=== PATIENT | male | born 1990 | race Two or more races ===

== ENCOUNTER 2018-02-23 05:47 | Inpatient (IN) | payer OTHER ==
[~2018-02-23] VITALS: Ht 167.6 cm; Wt 76.2 kg
[2018-02-23 09:36] VITALS: BP 132/89
[2018-02-23] MEDS ORDERED: LABETALOL 5MG/ML, 20ML IVPush PRN (10:00)
[2018-02-23] MEDS ORDERED: ACETAMINOPHEN 325 MG TABLET PO PRN (10:00)
[2018-02-23] MEDS ORDERED: ONDANSETRON 2MG/ML, 2ML IVPush PRN (10:00)
[2018-02-23] MEDS ORDERED: hydrALAzine 20 MG/ML, 1ML IVPush PRN (10:00)
[2018-02-23] MEDS ORDERED: ONDANSETRON ODT 4 MG PO PRN (10:30)
[2018-02-23 11:16] LABS: BASOPHILS # (AUTO) 0.03 x10^3/uL (0-0.1); BASOPHILS % (AUTO) 0 % (0-1); EOSINOPHILS # (AUTO) 0.04 x10^3/uL (0-0.4); EOSINOPHILS % (AUTO) 0 % (1-7); LYMPHOCYTES # (AUTO) 1.46 x10^3/uL (1-3.4); LYMPHOCYTES % (AUTO) 11 % (22-44); MD NO; MEAN CORPUSCULAR HEMOGLOBIN 30.8 pg (27.5-34.5); MEAN CORPUSCULAR HGB CONC 33.7 g/dL (33.2-36.2); MEAN CORPUSCULAR VOLUME 91.5 fL (81-97); MEAN PLATELET VOLUME 8.7 fL (7.4-10.4); MONOCYTES # (AUTO) 0.61 x10^3/uL (0.2-0.8); MONOCYTES % (AUTO) 5 % (2-9); NEUTROPHILS # (AUTO) 11.44 x10^3/uL (1.8-6.8); NEUTROPHILS % (AUTO) 84 % (42-75); PLATELET COUNT 327 x10^3/uL (130-400); RED BLOOD COUNT 5.41 x10^6/uL (4.38-5.82); RED CELL DISTRIBUTION WIDTH 13.1 % (9.4-14.8)
[2018-02-23 11:24] LABS: ALANINE AMINOTRANSFERASE 79 U/L (12-78); ALBUMIN 4.1 g/dL (3.4-5.0); ANION GAP 8 mmol/L (5-15); CALCIUM 8.3 mg/dL (8.5-10.1); CHLORIDE 109 mmol/L (98-107); CREATININE 0.99 mg/dL (0.7-1.3)
[2018-02-23 11:27] LABS: ALKALINE PHOSPHATASE 84 U/L (45-117); TOTAL PROTEIN 7.8 g/dL (6.4-8.2)
[2018-02-23 12:25] VITALS: BP 135/76
[2018-02-23] MEDS: HYDROcodone/APAP 5/325 TABLET PO PRN ×2 (12:53→18:18)
[2018-02-23] MEDS: SODIUM CHLORIDE 0.9% 1,000 ML IV SCH ×2 (14:06→22:20)
[2018-02-23 19:07] VITALS: BP 122/70
[2018-02-24] MEDS: HYDROcodone/APAP 5/325 TABLET PO PRN ×2 (00:18→06:10)
[2018-02-24 01:23] VITALS: BP 135/69
[2018-02-24 05:12] LABS: BASOPHILS # (AUTO) 0.04 x10^3/uL (0-0.1); BASOPHILS % (AUTO) 0 % (0-1); EOSINOPHILS # (AUTO) 0.16 x10^3/uL (0-0.4); EOSINOPHILS % (AUTO) 2 % (1-7); LYMPHOCYTES # (AUTO) 2.86 x10^3/uL (1-3.4); LYMPHOCYTES % (AUTO) 32 % (22-44); MD NO; MEAN CORPUSCULAR HEMOGLOBIN 31.2 pg (27.5-34.5); MEAN CORPUSCULAR HGB CONC 33.9 g/dL (33.2-36.2); MEAN CORPUSCULAR VOLUME 92.2 fL (81-97); MEAN PLATELET VOLUME 8.1 fL (7.4-10.4); MONOCYTES # (AUTO) 0.84 x10^3/uL (0.2-0.8); MONOCYTES % (AUTO) 10 % (2-9); NEUTROPHILS # (AUTO) 5.01 x10^3/uL (1.8-6.8); NEUTROPHILS % (AUTO) 56 % (42-75); PLATELET COUNT 278 x10^3/uL (130-400); RED BLOOD COUNT 4.78 x10^6/uL (4.38-5.82)
[2018-02-24 05:16] LABS: ANION GAP 5 mmol/L (5-15); CALCIUM 8.5 mg/dL (8.5-10.1); CHLORIDE 107 mmol/L (98-107); CREATININE 1.07 mg/dL (0.7-1.3)
[2018-02-24 06:54] VITALS: BP 126/79
[2018-02-24] MEDS: SODIUM CHLORIDE 0.9% 1,000 ML IV SCH ×2 (08:00→17:27)
[2018-02-24] MEDS ORDERED: GADOBUTROL 10 MMOL/10 ML VIAL ONE (12:56)
[2018-02-24 13:49] VITALS: BP 129/86
[2018-02-24] MEDS ORDERED: HEPARIN wt. based STROKE protocol MC PRN (15:30)
[2018-02-24] MEDS ORDERED: HEPARIN 25,000 UNITS/500ML PMX 500 ML IV PRN (16:00)
[2018-02-24 16:23] LABS: INTERNATIONAL NORMALIZED RATIO 1.02 (0.93-1.1); PROTHROMBIN TIME 10.5 Seconds (9.6-11.5)
[2018-02-24] MEDS ORDERED: WARFARIN 10 MG TABLET PO-COUM ONE (17:00)
[2018-02-24 19:18] VITALS: BP 142/86
[2018-02-25 01:35] VITALS: BP 124/75
[2018-02-25] MEDS: SODIUM CHLORIDE 0.9% 1,000 ML IV SCH ×2 (04:00→14:00)
[2018-02-25 06:18] LABS: INTERNATIONAL NORMALIZED RATIO 1.24 (0.93-1.1); PROTHROMBIN TIME 12.7 Seconds (9.6-11.5)
[2018-02-25 06:59] VITALS: BP 130/81
[2018-02-25] MEDS: ENOXAPARIN 80 MG/0.8 ML SQ SCH ×2 (11:30→23:30)
[2018-02-25] MEDS: WARFARIN HIGH DOSE PROTOCOL XX SCH (12:00)
[2018-02-25] MEDS ORDERED: ENOX80SY4 SQ (12:34)
[2018-02-25 13:29] VITALS: BP 131/77
[2018-02-25] MEDS ORDERED: WARFARIN 7.5 MG TABLET PO-COUM ONE (18:00)
[2018-02-25 19:17] VITALS: BP 149/83
[2018-02-26] MEDS: SODIUM CHLORIDE 0.9% 1,000 ML IV SCH
[2018-02-26 01:25] VITALS: BP 130/80
[2018-02-26 05:11] LABS: INTERNATIONAL NORMALIZED RATIO 2.72 (0.93-1.1); PROTHROMBIN TIME 27.5 Seconds (9.6-11.5)
[2018-02-26 06:51] VITALS: BP 160/72
[2018-02-26] MEDS: ENOXAPARIN 80 MG/0.8 ML SQ SCH (11:30)
[2018-02-26] MEDS: WARFARIN HIGH DOSE PROTOCOL XX SCH (12:00)
[2018-02-26 12:40] VITALS: BP 151/84
[2018-02-26] MEDS ORDERED: ENOX80SY4 SQ (13:53)
[2018-02-26] MEDS ORDERED: WARF2.5T PO-COUM (13:54)
[2018-02-26] MEDS ORDERED: WARFARIN 2.5 MG TABLET PO-COUM ONE (18:00)
== END 2018-02-26 14:11 | disposition home or self-care (01) | DRG 87 ==
LOC: ED 06:55 → OBSVTOIN 08:29 → EDIP 08:29 → 3NE 09:39
PROVIDERS: ADMIT Internal Medicine; ATTEND Internal Medicine
DX: S06.6X0A Traumatic subarachnoid hemorrhage without loss of consciousness, initial encounter (principal); F10.10 Alcohol abuse, uncomplicated; S06.5X0A Traumatic subdural hemorrhage without loss of consciousness, initial encounter; S02.11HA Other fracture of occiput, left side, initial encounter for closed fracture; S00.03XA Contusion of scalp, initial encounter; F12.20 Cannabis dependence, uncomplicated; F41.9 Anxiety disorder, unspecified; V00.131A Fall from skateboard, initial encounter; Y92.413 State road as the place of occurrence of the external cause; Y93.51 Activity, roller skating (inline) and skateboarding; Y99.8 Other external cause status; Z87.891 Personal history of nicotine dependence
CPT/HCPCS: 36415; 70450; 70545; 70551; 72125; 80048; 80053; 83735; 84100; 85025; 85520; 85610; 99285; A9585; J1644; J1650; Q0162; J7030

== ENCOUNTER 2019-07-04 02:59 | Inpatient (IN) | payer BC, OTHER ==
[~2019-07-04] VITALS: Ht 167.6 cm; Wt 80.0 kg
[~2019-07-04 02:59] MED LIST: ENOX80SY4 SQ; WARF2.5T PO-COUM
--- NOTE | 2019-07-04 03:10 | NUR ---
PT IN WHEELCHAIR WITH BROTHER AT CHAIR SIDE. PT BROTHER STATED HE WILL STAY WITH PT.
--- NOTE | 2019-07-04 03:21 | NUR ---
PT IN RADIOLOGY AT THIS TIME
--- NOTE | 2019-07-04 03:26 | NUR ---
RAIOLOGY COMPLETE, FX NOTED
[2019-07-04 03:50] LABS: BASOPHILS # (AUTO) 0.03 x10^3/uL (0-0.1); BASOPHILS % (AUTO) 0 % (0-1); EOSINOPHILS # (AUTO) 0.05 x10^3/uL (0-0.4); EOSINOPHILS % (AUTO) 0 % (1-7); LYMPHOCYTES # (AUTO) 1.46 x10^3/uL (1-3.4); LYMPHOCYTES % (AUTO) 13 % (22-44); MD NO; MEAN CORPUSCULAR HEMOGLOBIN 31.3 pg (27.5-34.5); MEAN CORPUSCULAR HGB CONC 33.4 g/dL (33.2-36.2); MEAN CORPUSCULAR VOLUME 93.9 fL (81-97); MEAN PLATELET VOLUME 7.7 fL (7.4-10.4); MONOCYTES # (AUTO) 0.34 x10^3/uL (0.2-0.8); MONOCYTES % (AUTO) 3 % (2-9); NEUTROPHILS # (AUTO) 9.67 x10^3/uL (1.8-6.8); NEUTROPHILS % (AUTO) 84 % (42-75); PLATELET COUNT 304 x10^3/uL (130-400); RED BLOOD COUNT 5.22 x10^6/uL (4.38-5.82); RED CELL DISTRIBUTION WIDTH 12.7 % (9.4-14.8)
[2019-07-04] MEDS ORDERED: SODIUM CHLORIDE FLUSH 10ML SYR IVF ONE (04:00)
[2019-07-04 04:03] LABS: ALANINE AMINOTRANSFERASE 76 U/L (12-78); ALBUMIN 4.4 g/dL (3.4-5.0); ANION GAP 6 mmol/L (5-15); CALCIUM 8.6 mg/dL (8.5-10.1); CHLORIDE 111 mmol/L (98-107); CREATININE 0.97 mg/dL (0.7-1.3)
[2019-07-04 04:05] LABS: ALKALINE PHOSPHATASE 92 U/L (45-117); BILIRUBIN,TOTAL 0.4 mg/dL (0.2-1.0); TOTAL PROTEIN 8.3 g/dL (6.4-8.2)
--- NOTE | 2019-07-04 05:17 | NUR ---
PT STATED "HIS LAST MEAL WAS AROUND 1900 ON 07/03/19 BUT DRANK BEERS TILL 0200 07/04/19"
[2019-07-04] MEDS ORDERED: SODIUM CHLORIDE 0.9% 1,000 ML IV ONE (06:10)
[2019-07-04] MEDS ORDERED: ONDANSETRON 2MG/ML, 2ML IVPush PRN ×2 (06:30→07:30)
[2019-07-04] MEDS ORDERED: MORPHINE SULFATE 4 MG/ML, 1ML IVPush PRN (06:30)
[2019-07-04] MEDS ORDERED: SODIUM CHLORIDE 0.9% 1,000 ML IV SCH (07:09)
--- NOTE | 2019-07-04 07:09 | NUR ---
REPORT FROM ANDREE CH, ASSUME CARE OF PT AT THIS TIME. PT RESTING, NAD. URINAL PROVIDED, WARM BLANKET GIVEN. CALL LIGHT WITHIN REACH.
[2019-07-04] MEDS ORDERED: ONDANSETRON ODT 4 MG PO PRN (07:30)
[2019-07-04] MEDS ORDERED: THIAMINE 200 MG in SODIUM CHLORIDE 0.9% 50 ML IV ONE (07:30)
[2019-07-04] MEDS ORDERED: ACETAMINOPHEN 325 MG TABLET PO PRN (07:30)
[2019-07-04 07:39] VITALS: BP 172/84
[2019-07-04] MEDS: morphine SULFATE 10 MG/ML, 1ML IVPush PRN ×3 (09:17→16:57)
[2019-07-04] MEDS: KETOROLAC 30 MG/1 ML IV PRN ×2 (11:29→22:29)
[2019-07-04 12:28] VITALS: BP 134/78
[2019-07-04 18:42] VITALS: BP 134/73
[2019-07-04 21:56] LABS: AMPHETAMINE SCREEN, URINE Negative (Negative); BARBITURATE SCREEN, URINE Negative (Negative); BENZODIAZEPINE SCREEN, URINE Negative (Negative); CANNABINOID SCREEN, URINE Positive (Negative); COCAINE SCREEN, URINE Negative (Negative); METHADONE SCREEN, URINE Negative (Negative); OPIATE SCREEN, URINE Positive (Negative)
[2019-07-04] MEDS: THIAMINE 100MG TABLET PO SCH (22:28)
[2019-07-05 01:56] VITALS: BP 139/70
[2019-07-05] MEDS: morphine SULFATE 10 MG/ML, 1ML IVPush PRN ×5 (04:33→21:05)
[2019-07-05] MEDS: POTASSIUM CHLORIDE 10 MEQ in SODIUM CHLORIDE 0.9% 1,000 ML IV SCH ×2 (05:26→19:30)
[2019-07-05 05:44] LABS: ANION GAP 5 mmol/L (5-15); CALCIUM 8.2 mg/dL (8.5-10.1); CHLORIDE 110 mmol/L (98-107)
[2019-07-05 05:46] LABS: CREATININE 0.97 mg/dL (0.7-1.3)
[2019-07-05 06:56] VITALS: BP 153/83
[2019-07-05] MEDS ORDERED: POTASSIUM CHLORIDE 10 MEQ in SODIUM CHLORIDE 0.9% 1,000 ML IV SCH (07:09)
[2019-07-05] MEDS ORDERED: FENTANYL PF 250 MCG/5ML ONE (09:29)
[2019-07-05] MEDS ORDERED: MIDAZOLAM 1 MG/ML, 2ML ONE (09:29)
[2019-07-05] MEDS ORDERED: MEPERIDINE/PF 25MG/ML,1ML IVPush PRN (10:00)
[2019-07-05] MEDS ORDERED: LABETALOL 5MG/ML, 20ML IV PRN (10:00)
[2019-07-05] MEDS ORDERED: OXYcodone 5 MG/5 ML ORAL.SOL UDC PO PRN (10:00)
[2019-07-05] MEDS ORDERED: hydrALAzine 20 MG/ML, 1ML IV PRN (10:00)
[2019-07-05] MEDS ORDERED: HALOPERIDOL 5 MG/ML IV PRN (10:00)
[2019-07-05] MEDS ORDERED: PROMETHAZINE 25 MG/ML, 1ML IV PRN (10:00)
[2019-07-05] MEDS ORDERED: FENTANYL PF 100 MCG/2ML ONE ×3 (10:10→11:26)
[2019-07-05] MEDS ORDERED: ROCURONIUM 10MG/ML,5ML ONE (10:14)
[2019-07-05] MEDS ORDERED: SUCCINYLCHOLINE 20 MG/ML, 10ML ONE (10:14)
[2019-07-05] MEDS ORDERED: PROPOFOL 10 MG/ML, 20ML ONE (10:14)
[2019-07-05] MEDS ORDERED: DEXAMETHASONE 4 MG/ML, 1ML ONE (10:14)
[2019-07-05] MEDS ORDERED: CEFAZOLIN 1,000 MG ONE (10:14)
[2019-07-05] MEDS ORDERED: ONDANSETRON 2MG/ML, 2ML ONE (10:14)
[2019-07-05] MEDS ORDERED: GLYCOPYRROLATE 0.2MG/1ML, 5ML ONE (10:14)
[2019-07-05] MEDS ORDERED: NEOSTIGMINE 1 MG/ML, 10ML ONE (10:14)
[2019-07-05] MEDS ORDERED: MEPERIDINE/PF 25MG/ML,1ML ONE (10:40)
[2019-07-05] MEDS ORDERED: OXYcodone 5 MG/5 ML ORAL.SOL UDC ONE (10:46)
[2019-07-05] MEDS ORDERED: HYDROmorphone 1 MG/ML, 1ML VIAL ONE ×2 (10:46→11:59)
[2019-07-05] MEDS: FENTANYL PF 100 MCG/2ML IV PRN ×3 (10:51→11:28)
[2019-07-05] MEDS ORDERED: KETOROLAC 30 MG/1 ML ONE (11:13)
[2019-07-05] MEDS: KETOROLAC 30 MG/1 ML IV PRN (11:14)
[2019-07-05] MEDS: HYDROmorphone 2 MG/ML, 1ML IVPush PRN ×3 (11:23→12:01)
[2019-07-05 12:52] VITALS: BP 174/117
[2019-07-05] MEDS: THIAMINE 100MG TABLET PO SCH ×2 (13:36→21:03)
[2019-07-05 20:52] VITALS: BP 142/67
[2019-07-06] MEDS: morphine SULFATE 10 MG/ML, 1ML IVPush PRN ×2 (01:09→07:22)
[2019-07-06 01:17] VITALS: BP 125/69
[2019-07-06 04:44] VITALS: BP 143/74
[2019-07-06 05:23] LABS: ANION GAP 6 mmol/L (5-15); CALCIUM 8.3 mg/dL (8.5-10.1); CHLORIDE 105 mmol/L (98-107); CREATININE 0.89 mg/dL (0.7-1.3)
[2019-07-06 05:33] LABS: BASOPHILS % (AUTO) 0 % (0-1); EOSINOPHILS # (AUTO) 0.03 x10^3/uL (0-0.4); EOSINOPHILS % (AUTO) 0 % (1-7); LYMPHOCYTES # (AUTO) 1.28 x10^3/uL (1-3.4); LYMPHOCYTES % (AUTO) 10 % (22-44); MD NO; MEAN CORPUSCULAR HGB CONC 34.1 g/dL (33.2-36.2); MEAN CORPUSCULAR VOLUME 93.9 fL (81-97); MEAN PLATELET VOLUME 8.3 fL (7.4-10.4); MONOCYTES # (AUTO) 0.79 x10^3/uL (0.2-0.8); MONOCYTES % (AUTO) 6 % (2-9); NEUTROPHILS # (AUTO) 10.82 x10^3/uL (1.8-6.8); NEUTROPHILS % (AUTO) 84 % (42-75); PLATELET COUNT 294 x10^3/uL (130-400); RED BLOOD COUNT 4.49 x10^6/uL (4.38-5.82); RED CELL DISTRIBUTION WIDTH 12.7 % (9.4-14.8)
[2019-07-06] MEDS: POTASSIUM CHLORIDE 10 MEQ in SODIUM CHLORIDE 0.9% 1,000 ML IV SCH ×2 (05:33→13:46)
[2019-07-06 06:34] VITALS: BP 148/84
[2019-07-06] MEDS: KETOROLAC 30 MG/1 ML IV PRN (08:54)
[2019-07-06] MEDS: THIAMINE 100MG TABLET PO SCH (08:54)
[2019-07-06] MEDS ORDERED: MULTIVITAMINS/MINERALS TABLET PO SCH (09:00)
[2019-07-06 12:23] VITALS: BP 143/79
[2019-07-06] MEDS ORDERED: ASPI81TA45 PO (14:11)
[2019-07-06] MEDS ORDERED: OXYC5TAB2 PO (14:11)
[2019-07-06] MEDS ORDERED: OXYcodone IR 5MG TABLET ONE (16:12)
[2019-07-06] MEDS ORDERED: OXYcodone IR 5MG TABLET PO PRN (16:30)
== END 2019-07-06 16:20 | disposition home or self-care (01) | DRG 493 ==
LOC: ED 05:26 → EDIP 06:18 → 4NE 07:31 → DCLOUNGE 07-06 16:11
PROVIDERS: ADMIT Hospitalist; ATTEND Internal Medicine
PROC: 0QSH04Z Reposition Left Tibia with Internal Fixation Device, Open Approach (ICD-10-PCS; principal; 2019-07-05 09:45)
DX: S82.142A Displaced bicondylar fracture of left tibia, initial encounter for closed fracture (principal); S82.141A Displaced bicondylar fracture of right tibia, initial encounter for closed fracture; W01.0XXA Fall on same level from slipping, tripping and stumbling without subsequent striking against object, initial encounter; Y93.89 Activity, other specified; Y92.89 Other specified places as the place of occurrence of the external cause; Y99.8 Other external cause status
CPT/HCPCS: 36415; 76000; 80048; 80053; 80307; 85025; C1713; G0378; J0690; J1100; J1170; J1885; J2250; J2405; J2704; J2710; J3010; J3411; J3480; J0330; J2175; J2270; J7030